=== PATIENT | female | born 1930 | race Caucasian/White ===

== ENCOUNTER → 2017-05-17 | Outpatient (CLI) | payer MEDICARE ==
--- NOTE | 2017-05-17 16:00 | RAD ---
DATE: 05/17/2017 EXAM: Left breast screening mammogram, 2-D and 3-D HISTORY: Screening mammogram. Prior right breast cancer status post mastectomy in 2008 COMPARISON: Mammogram 03/16/2016, 01/15/2015. This study was interpreted with the benefit of Computerized Aided Detection (CAD). The breast parenchyma shows scattered fibroglandular densities. Breast parenchyma level B. FINDINGS: Digital 2-D and 3-D tomosynthesis CC and MLO views of the left breast. Stable benign-appearing left no significant change from prior examination breast calcifications. No suspicious mass, calcification or architectural distortion. IMPRESSION: No mammographic evidence to suggest malignancy in the left breast. BI-RADS 2, benign. Screening mammogram in 12 months is recommended to BI-RADS CATEGORY: 2 BENIGN FINDING(S) RECOMMENDED FOLLOW-UP: 12M 12 MONTH FOLLOW-UP PQRS compliance statement: Patient information was entered into a reminder system with a target due date May 2018 for the next mammogram. Mammography is a sensitive method for finding small breast cancers, but it does not detect them all and is not a substitute for careful clinical examination. A negative mammogram does not negate a clinically suspicious finding and should not result in delay in biopsying a clinically suspicious abnormality. "Our facility is accredited by the [employer] Mammography Program."
== END | disposition home or self-care (01) ==
LOC: MAMMO 08:25
PROVIDERS: ATTEND Physician Assistant
DX: Z12.31 Encounter for screening mammogram for malignant neoplasm of breast (principal); Z85.3 Personal history of malignant neoplasm of breast; Z90.11 Acquired absence of right breast and nipple
CPT/HCPCS: 77063; G0202; 77067

== ENCOUNTER 2018-01-05 20:06 | Emergency (ER) | payer MEDICARE ==
[~2018-01-05] VITALS: Ht 167.6 cm; Wt 70.3 kg
[2018-01-05] MEDS ORDERED: cloNIDine HCL 0.1 MG TABLET PO ONE (21:00)
--- NOTE | 2018-01-05 21:16 | PHYS DOC ---
Past History Past Medical History: Arthritis, Cancer Past Surgical History: Cancer Surgery Alcohol Use: None Drug Use: None Adult General Chief Complaint Chief Complaint: HYPERTENSION HPI HPI Patient is a 87-year-old female presenting to the emergency department for evaluation of hypertension. She has no symptoms at all including no headache chest pain shortness of breath decreased urination vision changes unilateral weakness numbness or tingling. She checks her blood pressure multiple times today at home and reportedly has been more elevated over the past week so her manager business development hospice Dr. Raymundo started her on Norvasc 2.5 g twice a day today. An hour after taking her Norvasc her blood pressure was in the 80s over 40s systolic although she was not symptomatic. Given her hypotension they brought her here for further evaluation. Patient is hypertensive here. She says she feels fine at her baseline. Review of Systems Review of Systems Constitutional: Denies fever or chills [] Eyes: Denies change in visual acuity, redness, or eye pain [] Respiratory: Denies cough or shortness of breath [] Cardiovascular: No additional information not addressed in HPI [] GI: Denies abdominal pain, nausea, vomiting, bloody stools or diarrhea [] : Denies dysuria or hematuria [] Musculoskeletal: Denies back pain or joint pain [] Integument: Denies rash or skin lesions [] Neurologic: Denies headache, focal weakness or sensory changes [] All other systems were reviewed and found to be within normal limits, except as documented in this note. Current Medications Current Medications Current Medications Medications (Trade) Dose Ordered Sig/[facility] Start Time Stop Time Status Last Admin Dose Admin Clonidine HCl (Catapres) 0.1 mg 1X ONCE 01/05/18 21:00 01/05/18 21:01 DC 01/05/18 21:07 0.1 MG Allergies Allergies Allergies Coded Allergies Type Severity Reaction Last Updated Verified No Known Drug Allergies 01/05/18 No Physical Exam Physical Exam Constitutional: Well developed, well nourished, no acute distress, non-toxic appearance. [] Cardiovascular:Heart rate regular rhythm, no murmur [] Lungs & Thorax: Bilateral breath sounds clear to auscultation [] Abdomen: Bowel sounds normal, soft, no tenderness, no masses, no pulsatile masses. [] Skin: Warm, dry, no erythema, no rash. [] Back: No tenderness, no CVA tenderness. [] Extremities: No tenderness, no cyanosis, no clubbing, ROM intact, no edema. [] Neurologic: Alert and oriented X 3, normal motor function, normal sensory function, no focal deficits noted. [] Current Patient Data Vital Signs Vital Signs Date Time Temp Pulse Resp B/P (MAP) Pulse Ox O2 Delivery O2 Flow Rate FiO2 01/05/18 21:07 70 222/72 01/05/18 20:37 18 96 Room Air 01/05/18 20:28 98.2 EKG EKG [] Radiology/Procedures Radiology/Procedures [] Course & Med Decision Making Course & Med Decision Making Patient here essentially for a symptomatic hypertension. Patient given a dose of clonidine and her blood pressure improved. Given there is no signs of end organ damage she will be discharged in stable condition. Patient was told to take 2 of her Coreg tablets during the day and one in the evening and to keep her follow-up appointment on Monday with her primary care provider and/or manager business development hospice. She was told not to take the amlodipine given the reaction that she had. I discussed symptoms of end organ damage and when to return to the emergency department and they verbalize understanding. Dragon Disclaimer Dragon Disclaimer This electronic medical record was generated, in whole or in part, using a voice recognition dictation system. Departure Departure: Impression: Primary Impression: Hypertension Disposition: HOME, SELF-CARE Condition: STABLE Referrals: VENKAT REDMAN (PCP) Patient Instructions: Arterial Hypertension Additional Instructions: STOP TAKING THE AMLODIPINE (NORVASC). TAKE 2 TABS (50MG) OF THE CARVEDILOL ( COREG) IN THE AM INSTEAD OF THE USUAL 1 TAB. CONTINUE TAKING THE 1 TAB IN THE EVENING. COME BACK TO THE ED WITH ANY NEW OR WORSENING PAIN, SOA, OR OTHER GENERAL CONCERNS. THANK YOU! Problem Qualifiers Primary Impression: Hypertension Hypertension type: essential hypertension Qualified Codes: I10 - Essential ( primary) hypertension CEE FLOYD DO Jan 05, 2018 21:16
[2018-01-05 21:25] VITALS: BP 245/78
== END 2018-01-05 21:27 | disposition home or self-care (01) ==
LOC: ER 20:06
DX: I10 Essential (primary) hypertension (principal)
CPT/HCPCS: 99282; 99283